=== PATIENT | female | born 1945 | race Caucasian/White ===

== ENCOUNTER → 2016-10-05 | Outpatient (CLI) | payer MEDICARE, OTHER ==
[2016-01-26 11:34] VITALS: BP 156/86
[~2016-10-05] MED LIST: ATOR40TA PO; CHOL10003 PO; COLC0.6T34 PO; CYAN10005 PO; DILT180C2 PO; ESCI5TAB8 PO; FURO-68 PO; ISOS60TA PO; LANS30CA PO; LOSA100T6 PO; METO50TA2 PO; OMEG1CAP6 PO; POTA20TA4 PO
--- NOTE | 2016-10-05 15:12 | CARD ---
APPROVED REPORT EXAM: Two-dimensional and M-mode echocardiogram with Doppler and color Doppler. Other Information Quality : Average Rhythm : NSR INDICATION Atrial Fibrillation 2D DIMENSIONS RVDd3.1 (2.9-3.5cm)Left Atrium(2D)3.5 (1.6-4.0cm) IVSd1.3 (0.7-1.1cm)Aortic Root(2D)3.4 (2.0-3.7cm) LVDd4.1 (3.9-5.9cm)LVOT Diameter2.3 (1.8-2.4cm) PWd1.3 (0.7-1.1cm)LVDs3.1 (2.5-4.0cm) FS (%) 25.5 %SV38.6 ml LVEF(%)50.6 (>50%) Aortic Valve AoV Peak Wing.171.6cm/sAoV VTI34.0cm AO Peak GR.11.8mmHgLVOT VTI 26.66cm AO Mean GR.6mmHgAVA (VTI)3.10cm2 AI P 1/2 Kdcr015mg Mitral Valve MV E Nzsshhux17.0cm/sMV E Peak Gr.9mmHg MV DECEL [id number] A Tgkuxqtm275.1cm/s MV E Mean Gr.3mmHgMV BUH97li E/A Ratio0.5MV A Ettofpsw106py MVA (PHT)4.58cm2 TDI Lateral E' P. V7.20cm/sMedial E' P. V8.29cm/s E/Lateral E'9.6E/Medial E'8.3 Tricuspid Valve TR P. Xkwfwlcq268uw/sRAP JRUCVYMI2acLy TR Peak Gr.35czBwEOGA62axAp LEFT VENTRICLE The left ventricle is normal size. There is borderline concentric left ventricular hypertrophy. Left ventricle systolic function is normal. The Ejection Fraction is 55%. There is normal LV segmental wal l motion. Tissue Doppler imaging reveals mild left ventricular diastolic dysfunction. Transmitral Dop pler flow pattern is Grade I-abnormal relaxation pattern. RIGHT VENTRICLE The right ventricle is normal size. The right ventricular systolic function is normal. ATRIA The left atrium size is normal. The right atrium size is normal. The interatrial septum is intact wit h no evidence for an atrial septal defect or patent foramen ovale as noted on 2-D or Doppler imaging. AORTIC VALVE The aortic valve is calcified but opens well. The aortic valve is trileaflet. Doppler and Color Flow revealed mild to moderate aortic regurgitation. There is no significant aortic valvular stenosis. MITRAL VALVE The mitral valve is normal in structure and function. There is no mitral valve stenosis. Doppler and Color Flow revealed no mitral valve regurgitation noted. TRICUSPID VALVE The tricuspid valve is not well visualized. Doppler and Color Flow revealed moderate tricuspid regurg itation. The PA pressure was estimated at 26 mmHg. There is no tricuspid valve stenosis. PULMONIC VALVE The pulmonic valve is not well visualized. Doppler and Color Flow revealed no pulmonic valvular regur gitation. There is no pulmonic valvular stenosis. GREAT VESSELS The aortic root is normal in size. The IVC is normal in size and collapses >50% with inspiration. PERICARDIAL EFFUSION There is no evidence of significant pericardial effusion. Critical Notification Critical Value: No <Conclusion> Left ventricle systolic function is normal. The Ejection Fraction is 55%. There is normal LV segmental wall motion. Transmitral Doppler flow pattern is Grade I-abnormal relaxation pattern. Mild to moderate aortic regurgitation. Moderate tricuspid regurgitation. The PA pressure was estimated at 26 mmHg. There is no evidence of significant pericardial effusion.
== END | disposition home or self-care (01) ==
LOC: ECHO 13:52
PROVIDERS: ATTEND Internal Medicine Cardiovascular Disease
DX: I48.0 Paroxysmal atrial fibrillation (principal); I51.7 Cardiomegaly; I35.1 Nonrheumatic aortic (valve) insufficiency
CPT/HCPCS: 93306

== ENCOUNTER 2017-05-18 01:43 | Emergency (ER) | payer MEDICARE, OTHER ==
[~2017-05-18] VITALS: Ht 162.6 cm; Wt 90.7 kg
[~2017-05-18 01:43] MED LIST changes: -ESCI5TAB8 PO; +LEXAPRO5 MG PO
--- NOTE | 2017-05-18 02:18 | PHYS DOC ---
Past Medical History Past Medical History: Arrhythmia, CHF, High Cholesterol, Hypertension Past Surgical History: Cholecystectomy, Other Additional Past Surgical Histo: cardiac cath Alcohol Use: None Drug Use: None Adult General Chief Complaint Chief Complaint: BACK PAIN OR INJURY [facility] HPI Review of Systems Review of Systems Constitutional: Denies fever or chills [] Eyes: Denies change in visual acuity, redness, or eye pain [] HENT: Denies nasal congestion or sore throat [] Respiratory: Denies cough or shortness of breath [] Cardiovascular: No additional information not addressed in HPI [] GI: Denies abdominal pain, nausea, vomiting, bloody stools or diarrhea [] : Denies dysuria or hematuria [] Musculoskeletal: Denies back pain or joint pain [] Integument: Denies rash or skin lesions [] Neurologic: Denies headache, focal weakness or sensory changes [] Endocrine: Denies polyuria or polydipsia [] Current Medications Current Medications Current Medications Medications (Trade) Dose Ordered Sig/Gage Start Time Stop Time Status Last Admin Dose Admin Cyclobenzaprine HCl (Flexeril) 10 mg 1X ONCE 05/18/17 02:30 05/18/17 02:31 DC 05/18/17 02:39 10 MG Ketorolac Tromethamine (Toradol) 30 mg 1X ONCE 05/18/17 02:30 05/18/17 02:31 DC 05/18/17 02:30 30 MG Prednisone (Prednisone) 50 mg 1X ONCE 05/18/17 02:30 05/18/17 02:31 DC 05/18/17 02:39 50 MG Allergies Allergies Allergies Coded Allergies Type Severity Reaction Last Updated Verified No Known Allergies Allergy Unknown 08/20/14 No Physical Exam Physical Exam Constitutional: Well developed, well nourished, no acute distress, non-toxic appearance. [] HENT: Normocephalic, atraumatic, bilateral external ears normal, oropharynx moist, no oral exudates, nose normal. [] Eyes: PERRLA, EOMI, conjunctiva normal, no discharge. [] Neck: Normal range of motion, no tenderness, supple, no stridor. [] Cardiovascular:Heart rate regular rhythm, no murmur [] Lungs & Thorax: Bilateral breath sounds clear to auscultation [] Abdomen: Bowel sounds normal, soft, no tenderness, no masses, no pulsatile masses. [] Skin: Warm, dry, no erythema, no rash. [] Back: No tenderness, no CVA tenderness. [] Extremities: No tenderness, no cyanosis, no clubbing, ROM intact, no edema. [] Neurologic: Alert and oriented X 3, normal motor function, normal sensory function, no focal deficits noted. [] Psychologic: Affect normal, judgement normal, mood normal. [] Current Patient Data Vital Signs Vital Signs Date Time Temp Pulse Resp B/P (MAP) Pulse Ox O2 Delivery O2 Flow Rate FiO2 05/18/17 01:55 97.6 62 18 96 Room Air 97.6 EKG EKG [] Radiology/Procedures Radiology/Procedures [] Course & Med Decision Making Course & Med Decision Making Pertinent Labs and Imaging studies reviewed. (See chart for details) [] Dragon Disclaimer Dragon Disclaimer This electronic medical record was generated, in whole or in part, using a voice recognition dictation system. Departure Departure Impression: Primary Impression: Sciatica Disposition: HOME, SELF-CARE Referrals: ALBA HART MD (PCP) Patient Instructions: Sciatica Additional Instructions: Your clinical findings suggest that you have sciatica. Sciatica refers to inflammation of the sciatic nerve which causes pain in the buttock or down the leg. It's an inflammatory process as a result of direct irritation of the nerve often from a disc herniation . Take ibuprofen 800 mg every 6 hours. Finish prednisone as prescribed once a day for 5 days. Follow-up with your doctor in 2 days for reevaluation and to discuss at what point you could consider outpatient MRI imaging for further workup if indicated. Return immediately for new severe worsening symptoms. Scripts Prednisone (PREDNISONE) 50 Mg Tablet 1 TAB PO DAILY, #5 TAB Prov: TIA KEE MD 05/18/17 Cyclobenzaprine Hcl (CYCLOBENZAPRINE HCL) 10 Mg Tablet 1 TAB PO TID for MUSCLE SPASMS, #30 TAB Prov: TIA KEE MD 05/18/17 TIA KEE MD May 18, 2017 02:18
[2017-05-18] MEDS ORDERED: predniSONE 20 MG TABLET PO ONE (02:30)
[2017-05-18] MEDS ORDERED: CYCLOBENZAPRINE 10 MG TABLET. PO ONE (02:30)
[2017-05-18] MEDS ORDERED: KETOROLAC TROMETHAMINE 30 MG/ML INJ. IV ONE (02:30)
[2017-05-18] MEDS ORDERED: CYCL10TA2 PO (03:30)
[2017-05-18] MEDS ORDERED: PRED50TA PO (03:30)
[2017-05-18 03:43] VITALS: BP 159/67
== END 2017-05-18 03:44 | disposition home or self-care (01) ==
LOC: ER 01:43
DX: M54.30 Sciatica, unspecified side (principal); I11.0 Hypertensive heart disease with heart failure; I50.9 Heart failure, unspecified; E78.00 Pure hypercholesterolemia, unspecified
CPT/HCPCS: 96374; 99284; J1885; J7512

== ENCOUNTER 2018-06-11 14:11 | Emergency (ER) | payer BC ==
[~2018-06-11] VITALS: Ht 165.1 cm; Wt 93.9 kg
[~2018-06-11 14:11] MED LIST changes: +CYCL10TA2 PO; +DONE10TA7 PO; +EDOX60TA PO; -LOSA100T6 PO; +LOSA100T7 PO; +METO-239 PO; -METO50TA2 PO; +METO50TA6 PO; +PANT40TA5 PO; +PRED50TA PO; +SERT100T PO
[2018-06-11 14:37] LABS: BILIRUBIN,URINE NEGATIVE (NEG); CLARITY,URINE CLOUDY; COLOR,URINE YELLOW; NITRITE,URINE NEGATIVE (NEG); PH,URINE 5.5; PROTEIN,URINE NEGATIVE (NEG-TRACE)
[2018-06-11] MEDS ORDERED: MECLIZINE HCL 12.5 MG TABLET. PO ONE (14:45)
[2018-06-11] MEDS ORDERED: IV NORMAL SALINE 1000ML BAG 1,000 ML IV ONE (14:45)
[2018-06-11 14:54] LABS: BACTERIA,URINE 0 /HPF (0-FEW); HYALINE CASTS, URINE MANY /HPF; RBC,URINE 0 /HPF (0-2); SQUAMOUS EPITHELIAL CELL,UR FEW /LPF
--- NOTE | 2018-06-11 15:21 | PHYS DOC ---
Past Medical History Past Medical History: A-Fib, Arrhythmia, CHF, High Cholesterol, Hypertension Past Surgical History: Cholecystectomy, Other Additional Past Surgical Histo: cardiac cath, neck surgery Alcohol Use: None Drug Use: None Adult General Chief Complaint Chief Complaint: DIZZY/LIGHT HEADED HPI HPI Patient is a 73 year old female with a history of A. fib, atrial arrhythmias, hypertension, CHF, high cholesterol, who presents today stating she has history of chronic nasal congestion, she patient states today she experience an episode of dizziness and has had a mild headache since this morning. Patient denies anything exacerbating or making her symptoms better. Patient is also complaining of a lump on the left lower quadrant that she states occurs intermittently for the last couple months. Patient states she believes it could be stool. She states she has history of constipation. Denies any nausea vomiting. Denies any chest pain or shortness of breath. She states the only reason she came to the ED today is because her family member requested her to come to the ED. Review of Systems Review of Systems Constitutional: Denies fever or chills [] Eyes: Denies change in visual acuity, redness, or eye pain [] HENT: Reports chronic nasal congestion, denies sore throat [] Respiratory: Denies cough or shortness of breath [] Cardiovascular: No additional information not addressed in HPI [] GI: Reports most of the left lower quadrant. Denies abdominal pain, nausea, vomiting, bloody stools or diarrhea [] : Denies dysuria or hematuria [] Musculoskeletal: Denies back pain or joint pain [] Integument: Denies rash or skin lesions [] Neurologic: Reports headache and dizziness, denies focal weakness or sensory changes [] All other systems were reviewed and found to be within normal limits, except as documented in this note. Current Medications Current Medications Current Medications Medications (Trade) Dose Ordered Sig/Gage Start Time Stop Time Status Last Admin Dose Admin Acetaminophen (Tylenol) 500 mg 1X ONCE 06/11/18 17:15 06/11/18 17:16 Ceftriaxone Sodium 50 ml @ 100 mls/hr 1X ONCE 06/11/18 15:45 06/11/18 16:14 DC 06/11/18 16:04 100 MLS/HR Meclizine HCl (Antivert) 25 mg 1X ONCE 06/11/18 14:45 9/24/18 14:46 DC 06/11/18 16:04 25 MG Sodium Chloride 1,000 ml @ 1,000 mls/hr 1X ONCE 06/11/18 14:45 06/11/18 15:44 DC 06/11/18 16:08 1,000 MLS/HR Allergies Allergies Allergies Coded Allergies Type Severity Reaction Last Updated Verified No Known Allergies Allergy Unknown 08/20/14 No Physical Exam Physical Exam Constitutional: Well developed, well nourished, no acute distress, non-toxic appearance. [] HENT: Normocephalic, atraumatic, bilateral external ears normal, oropharynx moist, no oral exudates, patient sounds congested nasally. Bilateral nasal turbinates are boggy and erythematous, mild frontal sinus tenderness. [] Eyes: PERRLA, EOMI, conjunctiva normal, no discharge. [] Neck: Normal range of motion, no tenderness, supple, no stridor. [] Cardiovascular:Bradycardia Lungs & Thorax: Bilateral breath sounds clear to auscultation [] Abdomen: Bowel sounds normal, soft, no tenderness, no masses, no pulsatile masses. [] Skin: Warm, dry, no erythema, no rash. [] Back: No tenderness, no CVA tenderness. [] Extremities: No tenderness, no cyanosis, no clubbing, ROM intact, no edema. [] Neurologic: Alert and oriented X 3, normal motor function, normal sensory function, no focal deficits noted. Cranial nerves II through XII intact Psychologic: Affect normal, judgement normal, mood normal. [] Current Patient Data Vital Signs Vital Signs Date Time Temp Pulse Resp B/P (MAP) Pulse Ox O2 Delivery O2 Flow Rate FiO2 06/11/18 14:44 98.2 57 16 153/68 (96) 97 Room Air 98.2 Lab Values Laboratory Tests Test 06/11/18 14:28 06/11/18 15:50 Urine Collection Type Unknown Urine Color Yellow Urine Clarity Cloudy Urine pH 5.5 Urine Specific [place] 1.015 Urine Protein Negative mg/dL (NEG-TRACE) Urine Glucose (UA) Negative mg/dL (NEG) Urine Ketones (Stick) Negative mg/dL (NEG) Urine Blood Negative (NEG) Urine Nitrite Negative (NEG) Urine Bilirubin Negative (NEG) Urine Urobilinogen Dipstick 1.0 mg/dL (0.2 mg/dL) Urine Leukocyte Esterase Small (NEG) Urine RBC 0 /HPF (0-2) Urine WBC 1-4 /HPF (0-4) Urine Squamous Epithelial Cells Few /LPF Urine Transitional Epithelial Cells Few /LPF Urine Bacteria 0 /HPF (0-FEW) Urine Hyaline Casts Many /HPF Urine Mucus Mod /LPF Urine Opiates Screen Neg (NEG) Urine Methadone Screen Neg (NEG) Urine Barbiturates Neg (NEG) Urine Phencyclidine Screen Neg (NEG) Urine Amphetamine/Methamphetamine Neg (NEG) Urine Benzodiazepines Screen Neg (NEG) Urine Cocaine Screen Neg (NEG) Urine Cannabinoids Screen Neg (NEG) Urine Ethyl Alcohol Neg (NEG) White Blood Count 8.4 x10^3/uL (4.0-11.0) Red Blood Count 4.44 x10^6/uL (3.50-5.40) Hemoglobin 12.2 g/dL (12.0-15.5) Hematocrit 35.2 % (36.0-47.0) L Mean Corpuscular Volume 79 fL (79-100) Mean Corpuscular Hemoglobin 28 pg (25-35) Mean Corpuscular Hemoglobin Concent 35 g/dL (31-37) Red Cell Distribution Width 15.5 % (11.5-14.5) H Platelet Count 217 x10^3/uL (140-400) Neutrophils (%) (Auto) 73 % (31-73) Lymphocytes (%) (Auto) 17 % (24-48) L Monocytes (%) (Auto) 7 % (0-9) Eosinophils (%) (Auto) 1 % (0-3) Basophils (%) (Auto) 1 % (0-3) Neutrophils # (Auto) 6.1 x10^3uL (1.8-7.7) Lymphocytes # (Auto) 1.5 x10^3/uL (1.0-4.8) Monocytes # (Auto) 0.6 x10^3/uL (0.0-1.1) Eosinophils # (Auto) 0.1 x10^3/uL (0.0-0.7) Basophils # (Auto) 0.1 x10^3/uL (0.0-0.2) Sodium Level 143 mmol/L (136-145) Potassium Level 3.7 mmol/L (3.5-5.1) Chloride Level 104 mmol/L (98-107) Carbon Dioxide Level 31 mmol/L (21-32) Anion Gap 8 (6-14) Blood Urea Nitrogen 12 mg/dL (7-20) Creatinine 1.2 mg/dL (0.6-1.0) H Estimated GFR (Cockcroft-Gault) 43.8 Glucose Level 116 mg/dL (70-99) H Calcium Level 9.7 mg/dL (8.5-10.1) Magnesium Level 1.8 mg/dL (1.8-2.4) Troponin I Quantitative < 0.017 ng/mL (0.000-0.055) PN-Pts-P-Type Natriuretic Peptide 208 pg/mL (0-449) Thyroid Stimulating Hormone (TSH) 1.269 uIU/mL (0.358-3.74) Laboratory Tests 06/11/18 15:50 Laboratory Tests 06/11/18 15:50 EKG EKG 14:[address] Gadiel parr bradycardia HR 47 with right bundle branch block no STEMI EKG similar to previous one done in September. Radiology/Procedures Radiology/Procedures []PROCEDURE: ACUTE ABDOMEN SERIES Supine and upright views of the abdomen and PA view chest x-ray Clinical indications: Constipation. Dizziness. Congestion. Shortness of breath. FINDINGS: Moderate fecal retention is seen throughout the colon and rectosigmoid region. No obstructive bowel pattern is evident. No air-fluid levels are seen. No free intraperitoneal air is evident. Cholecystectomy clips are seen within the right upper quadrant of the abdomen. Chest x-ray demonstrates no lung consolidation or pulmonary edema or pleural effusion or pneumothorax. There is mild linear scarring of the left lower lung zone. The heart size is mildly enlarged. The mediastinum and pulmonary vasculature and both antwon are unremarkable. IMPRESSION: No acute radiographic abnormality of the abdomen is evident. Moderate fecal retention. No lung consolidation is seen. Mild cardiomegaly. Stable chest x-ray since October 05, 2017. Electronically signed by: Sravan Borjas MD (06/11/2018 3:51 PM) [id number] DICTATED and SIGNED BY: SRAVAN BORJAS MD DATE: 06/11/18 1548 PROCEDURE: CT HEAD WO CONTRAST CT head without intravenous contrast History: Dizziness. Comparison: CT head January 26, 2016. Technique: Axial images are obtained of the head from the skull base through the vertex without IV contrast. Exposure: One or more of the following individualized dose reduction techniques were utilized for this examination: 1. Automated exposure control 2. Adjustment of the mA and/or kV according to patient size 3. Use of iterative reconstruction technique Findings: Variant anatomy is seen with cavum septi pellucidi et vergae present. The ventricles are appropriate in size, shape, and location for the patient's age. No obvious intracranial mass, mass-effect, midline shift, hemorrhage or obvious acute infarction is identified. Basilar cisterns are patent. Bone windows demonstrate no acute calvarial abnormality. The visualized paranasal sinuses appear clear. Impression: No acute intracranial process. Please note that CT can be relatively insensitive to acute ischemic infarction for up to 24 hours after symptom onset. Electronically signed by: Stevenson Yadav MD (06/11/2018 3:41 PM) [id number] DICTATED and SIGNED BY: STEVENSON YADAV MD DATE: 06/11/18 1536 Course & Med Decision Making Course & Med Decision Making Pertinent Labs and Imaging studies reviewed. (See chart for details) This is a 73-year-old female patient presented to the ED today with complaints of chronic nasal congestion, and dizziness and a headache since this morning. Patient's also complaining of a lump on her left lower quadrant that she states occurs when she is constipated. She believes it's probably stools. FAST exam is negative. CT of the head is negative for any acute findings. Acute abdominal series was noted for constipation otherwise no acute findings. CBC no acute findings, BMP with no acute findings and troponin is normal. Urine noted for UTI. Patient was given Rocephin in the ED. Discharged with Augmentin. Patient was instructed to perform an enema when she gets home. Instructed to increase dietary fiber intake. She is up ambulating in the ED with no difficulties. Her dizziness is likely from chronic sinusitis. She has a PCP and needs to follow up this week or next week. Patient was instructed to follow- up as soon as possible. Provided return precautions and discharged in stable condition. Dragon Disclaimer Dragon Disclaimer This electronic medical record was generated, in whole or in part, using a voice recognition dictation system. Departure Departure Impression: Primary Impression: Constipation Additional Impressions: Dizziness Acute sinusitis Urinary tract infection Disposition: HOME, SELF-CARE Condition: STABLE Referrals: ROZ FOX (PCP) Follow-up as soon as you can Patient Instructions: Constipation, Adult, Dizziness, [id number], Urinary Tract Infection Additional Instructions: You were evaluated in the emergency room and noted to have chronic sinusitis, constipation, as well as urinary tract infection. We highly suspect your dizziness is coming from the sinus infection. Take the prescribed antibiotics as ordered until completed. Follow-up with your primary care doctor as soon as you can. Come back to the ED at any point symptoms worsen. Take Tylenol or Motrin as needed for pain or fever. 4 year constipation, we recommend you perform an enema as soon as you get home. You have a lot of feces in your colon. Also take magnesium citrate as needed for constipation. Also take MiraLAX every day. Scripts Na Phos,M-B/Na Phos,Di-Ba (ENEMA) 133 Ml Enema 133 ML RC ONCE, #1 EACH Prov: OLI FELIPE APRN 06/11/18 Amoxicillin/Potassium Clav (AUGMENTIN 875-125 TABLET) 1 Each Tablet 1 TAB PO BID, #20 TAB Prov: OLI FELIPE APRN 06/11/18 Magnesium Citrate (MAGNESIUM CITRATE) 296 Ml Solution 296 ML PO ONCE, #296 ML Prov: OLI FELIPE APRN 06/11/18 Polyethylene Glycol 3350 (MIRALAX) 17 Gm Powd.pack 1 PACKET PO DAILY, #30 PACKET 3 Refills Prov: OLI FELIPE APRN 06/11/18 Problem Qualifiers Primary Impression: Constipation Constipation type: unspecified constipation type Qualified Codes: K59.00 - Constipation, unspecified Additional Impressions: Acute sinusitis Sinusitis location: maxillary Recurrence: not specified as recurrent Qualified Codes: J01.00 - Acute maxillary sinusitis, unspecified Urinary tract infection Urinary tract infection type: site unspecified Hematuria presence: without hematuria Qualified Codes: N39.0 - Urinary tract infection, site not specified OLI FELIPE APRN Jun 11, 2018 15:21
--- NOTE | 2018-06-11 15:41 | EKG ---
[facility] [address] [place] [address] Test Date: 2018-06-11 Test Time: 14:55:10 Pat Name: JANET EWING Department: Room: Gender: F Investigator Internal Affairs: : 1945 Requested By: OLI FELIPE Order Number: [id number] Reading MD: Ha Hameed Measurements Intervals [place] Rate: 47 P: 39 MO: 192 QRS: 22 QRSD: 158 T: -14 QT: 412 QTc: 367 Interpretive Statements SINUS BRADYCARDIA RIGHT BUNDLE BRANCH BLOCK ABNORMAL ECG Electronically Signed On 06-12-2018 11:14:19 CDT by Ha Hameed
--- NOTE | 2018-06-11 15:45 | RAD ---
CT head without intravenous contrast History: Dizziness. Comparison: CT head January 26, 2016. Technique: Axial images are obtained of the head from the skull base through the vertex without IV contrast. Exposure: One or more of the following individualized dose reduction techniques were utilized for this examination: 1. Automated exposure control 2. Adjustment of the mA and/or kV according to patient size 3. Use of iterative reconstruction technique Findings: Variant anatomy is seen with cavum septi pellucidi et vergae present. The ventricles are appropriate in size, shape, and location for the patient's age. No obvious intracranial mass, mass-effect, midline shift, hemorrhage or obvious acute infarction is identified. Basilar cisterns are patent. Bone windows demonstrate no acute calvarial abnormality. The visualized paranasal sinuses appear clear. Impression: No acute intracranial process. Please note that CT can be relatively insensitive to acute ischemic infarction for up to 24 hours after symptom onset. Electronically signed by: Stevenson Rubio MD (06/11/2018 3:41 PM) [facility]
--- NOTE | 2018-06-11 15:54 | RAD ---
Supine and upright views of the abdomen and PA view chest x-ray Clinical indications: Constipation. Dizziness. Congestion. Shortness of breath. FINDINGS: Moderate fecal retention is seen throughout the colon and rectosigmoid region. No obstructive bowel pattern is evident. No air-fluid levels are seen. No free intraperitoneal air is evident. Cholecystectomy clips are seen within the right upper quadrant of the abdomen. Chest x-ray demonstrates no lung consolidation or pulmonary edema or pleural effusion or pneumothorax. There is mild linear scarring of the left lower lung zone. The heart size is mildly enlarged. The mediastinum and pulmonary vasculature and both antwon are unremarkable. IMPRESSION: No acute radiographic abnormality of the abdomen is evident. Moderate fecal retention. No lung consolidation is seen. Mild cardiomegaly. Stable chest x-ray since October 05, 2017. Electronically signed by: Tony Borjas MD (06/11/2018 3:51 PM) [id number]
[2018-06-11 15:58] LABS: BASO # 0.1 x10^3/uL (0.0-0.2); BASO % 1 % (0-3); EOS # 0.1 x10^3/uL (0.0-0.7); EOS % 1 % (0-3); HEMATOCRIT 35.2 % (36.0-47.0); HEMOGLOBIN 12.2 g/dL (12.0-15.5); LYMPH # 1.5 x10^3/uL (1.0-4.8); LYMPH % 17 % (24-48); MEAN CORPUSCULAR HEMOGLOBIN 28 pg (25-35); MEAN CORPUSCULAR HGB CONC 35 g/dL (31-37); MEAN CORPUSCULAR VOLUME 79 fL (79-100); MONO # 0.6 x10^3/uL (0.0-1.1); MONO % 7 % (0-9); NEUT # 6.1 x10^3uL (1.8-7.7); NEUT % 73 % (31-73); PLATELET COUNT 217 x10^3/uL (140-400); RED BLOOD COUNT 4.44 x10^6/uL (3.50-5.40); RED CELL DISTRIBUTION WIDTH 15.5 % (11.5-14.5); WHITE BLOOD COUNT 8.4 x10^3/uL (4.0-11.0)
[2018-06-11 16:10] LABS: CALCIUM 9.7 mg/dL (8.5-10.1); CREATININE 1.2 mg/dL (0.6-1.0); GFR 43.8; MAGNESIUM 1.8 mg/dL (1.8-2.4); POTASSIUM 3.7 mmol/L (3.5-5.1)
[2018-06-11 16:14] LABS: BARBITURATES NEG (NEG); BENZODIAZEPINES NEG (NEG); CANNABINOIDS NEG (NEG); COCAINE NEG (NEG); METHADONE NEG (NEG); OPIATES NEG (NEG); PHENCYCLIDINE NEG (NEG)
[2018-06-11 16:17] LABS: AMPHETAMINE/METHAMPHETAMINE NEG (NEG)
[2018-06-11] MEDS ORDERED: ACETAMINOPHEN 500 MG TABLET PO ONE (17:15)
[2018-06-11] MEDS ORDERED: NA P133E6 RC (17:20)
[2018-06-11] MEDS ORDERED: MAGN296S9 PO (17:20)
[2018-06-11] MEDS ORDERED: POLY17PO29 PO (17:20)
[2018-06-11] MEDS ORDERED: AMOX1TAB61 PO (17:20)
[2018-06-11 18:30] VITALS: BP 184/73
== END 2018-06-11 18:35 | disposition home or self-care (01) ==
LOC: ER 14:11
DX: K59.00 Constipation, unspecified (principal); R42 Dizziness and giddiness; N39.0 Urinary tract infection, site not specified; J01.90 Acute sinusitis, unspecified; I48.91 Unspecified atrial fibrillation; I11.0 Hypertensive heart disease with heart failure; I50.9 Heart failure, unspecified; E78.00 Pure hypercholesterolemia, unspecified; Z90.49 Acquired absence of other specified parts of digestive tract
CPT/HCPCS: 36415; 70450; 74022; 80048; 80307; 81001; 83735; 83880; 84443; 84484; 85025; 87086; 93005; 96365; 96366; 99285; J0690; J7030; J8597; G0479

== ENCOUNTER 2018-06-14 14:14 | Emergency (ER) | payer BC ==
[~2018-06-14] VITALS: Ht 165.1 cm; Wt 93.9 kg
[~2018-06-14 14:14] MED LIST changes: +AMOX1TAB61 PO; +MAGN296S9 PO; +NA P133E6 RC; +POLY17PO29 PO
--- NOTE | 2018-06-14 15:18 | RAD ---
Examination: Acute abdomen series HISTORY: History of loose stools for 4 days COMPARISON: 06/11/2018 FINDINGS: The cardiomediastinal silhouette grossly appears unremarkable. Minimal left lung base atelectasis. No evidence of free air identified in the hemidiaphragms. Unremarkable bowel gas pattern. Small calcific density projecting in the mid abdomen measuring 3 mm could be a calcification within the bowel. IMPRESSION: 1. No acute cardiopulmonary findings. 2. Unremarkable gas pattern. Electronically signed by: Kendall Morgan MD (06/14/2018 3:15 PM) [id number]
[2018-06-14] MEDS ORDERED: CONTRAST GIVEN. MC PRN (15:45)
[2018-06-14] MEDS ORDERED: IOHEXOL 300 MG/ML 100ML VIAL. IV ONE (15:45)
--- NOTE | 2018-06-14 15:45 | PHYS DOC ---
Past Medical History Past Medical History: A-Fib, Arrhythmia, CHF, High Cholesterol, Hypertension Past Surgical History: Cholecystectomy, Other Additional Past Surgical Histo: cardiac cath, neck surgery Alcohol Use: None Drug Use: None Adult General Chief Complaint Chief Complaint: CONTISPATION [facility] HPI Patient is a 73 year old female with history of A. fib, CHF, high cholesterol, hypertension, who presents today complaining of constipation. Patient is a very poor historian. She does not remember the last time she had a normal bowel movement. She states she tried this clear drink that tasted nasty yesterday but she can not recall if she used the bathroom or not. She also states she has done an enema and does not know the results. She states her sisters asked her to come to the Ed to be evaluated. Patient denies any abdominal pain, denies any nausea vomiting. Review of Systems Review of Systems Constitutional: Denies fever or chills [] Eyes: Denies change in visual acuity, redness, or eye pain [] HENT: Denies nasal congestion or sore throat [] Respiratory: Denies cough or shortness of breath [] Cardiovascular: No additional information not addressed in HPI [] GI: Reports constipation. Denies abdominal pain, nausea, vomiting, bloody stools or diarrhea [] : Denies dysuria or hematuria [] Musculoskeletal: Denies back pain or joint pain [] Integument: Denies rash or skin lesions [] Neurologic: Denies headache, focal weakness or sensory changes [] All other systems were reviewed and found to be within normal limits, except as documented in this note. Current Medications Current Medications Current Medications Medications (Trade) Dose Ordered Sig/Gage Start Time Stop Time Status Last Admin Dose Admin Info (CONTRAST GIVEN -- Rx MONITORING) 1 each PRN DAILY PRN 06/14/18 15:45 06/16/18 15:44 Iohexol (Omnipaque 300 Mg/ml) 75 ml 1X ONCE 06/14/18 15:45 06/14/18 15:46 DC 06/14/18 15:45 60 ML Allergies Allergies Allergies Coded Allergies Type Severity Reaction Last Updated Verified No Known Allergies Allergy Unknown 08/20/14 No Physical Exam Physical Exam Constitutional: Well developed, well nourished, no acute distress, non-toxic appearance. [] HENT: Normocephalic, atraumatic, bilateral external ears normal, oropharynx moist, no oral exudates, nose normal. [] Eyes: PERRLA, EOMI, conjunctiva normal, no discharge. [] Neck: Normal range of motion, no tenderness, supple, no stridor. [] Cardiovascular:Heart rate regular rhythm, no murmur [] Lungs & Thorax: Bilateral breath sounds clear to auscultation [] Abdomen: Bowel sounds normal, soft, no tenderness, no masses, no pulsatile masses. [] Skin: Warm, dry, no erythema, no rash. [] Back: No tenderness, no CVA tenderness. [] Extremities: No tenderness, no cyanosis, no clubbing, ROM intact, no edema. [] Neurologic: Alert and oriented X 3, normal motor function, normal sensory function, no focal deficits noted. [] Psychologic: Affect normal, judgement normal, mood normal. [] Current Patient Data Vital Signs Vital Signs Date Time Temp Pulse Resp B/P (MAP) Pulse Ox O2 Delivery O2 Flow Rate FiO2 06/14/18 18:35 58 20 160/72 (101) 98 06/14/18 14:37 98.5 Room Air 98.5 Lab Values Laboratory Tests Test 06/14/18 15:30 White Blood Count 7.3 x10^3/uL (4.0-11.0) Red Blood Count 4.29 x10^6/uL (3.50-5.40) Hemoglobin 11.6 g/dL (12.0-15.5) L Hematocrit 34.6 % (36.0-47.0) L Mean Corpuscular Volume 81 fL (79-100) Mean Corpuscular Hemoglobin 27 pg (25-35) Mean Corpuscular Hemoglobin Concent 34 g/dL (31-37) Red Cell Distribution Width 15.1 % (11.5-14.5) H Platelet Count 205 x10^3/uL (140-400) Neutrophils (%) (Auto) 64 % (31-73) Lymphocytes (%) (Auto) 23 % (24-48) L Monocytes (%) (Auto) 9 % (0-9) Eosinophils (%) (Auto) 3 % (0-3) Basophils (%) (Auto) 1 % (0-3) Neutrophils # (Auto) 4.7 x10^3uL (1.8-7.7) Lymphocytes # (Auto) 1.7 x10^3/uL (1.0-4.8) Monocytes # (Auto) 0.6 x10^3/uL (0.0-1.1) Eosinophils # (Auto) 0.2 x10^3/uL (0.0-0.7) Basophils # (Auto) 0.1 x10^3/uL (0.0-0.2) Sodium Level 144 mmol/L (136-145) Potassium Level 3.4 mmol/L (3.5-5.1) L Chloride Level 103 mmol/L (98-107) Carbon Dioxide Level 34 mmol/L (21-32) H Anion Gap 7 (6-14) Blood Urea Nitrogen 11 mg/dL (7-20) Creatinine 1.0 mg/dL (0.6-1.0) Estimated GFR (Cockcroft-Gault) 54.1 BUN/Creatinine Ratio 11 (6-20) Glucose Level 108 mg/dL (70-99) H Calcium Level 10.0 mg/dL (8.5-10.1) Total Bilirubin 0.6 mg/dL (0.2-1.0) Aspartate Amino Transferase (AST) 16 U/L (15-37) Alanine Aminotransferase (ALT) 18 U/L (14-59) Alkaline Phosphatase 61 U/L (46-116) Total Protein 6.9 g/dL (6.4-8.2) Albumin 3.6 g/dL (3.4-5.0) Albumin/Globulin Ratio 1.1 (1.0-1.7) Lipase 160 U/L (73-393) Laboratory Tests 06/14/18 15:30 Laboratory Tests 06/14/18 15:30 EKG EKG [] Radiology/Procedures Radiology/Procedures []PROCEDURE: CT ABD PELV W/ IV CONTRST ONLY Examination: CT ABD PELV W/ IV CONTRST ONLY History: CONSTIPATION INJ 75ML OMNI 300 PREV SENT Comparison/Correlation: 10/30/2005 CT abdomen and pelvis with contrast Findings: Axial images of the abdomen and pelvis were obtained following 75 cc Omnipaque 300 IV. Sagittal and coronal reformatted images were provided. Minimal linear atelectasis at the lung bases noted. Liver, spleen, pancreas, adrenal glands, and kidneys are normal. Mild fullness of the common bile duct is evident. No extraluminal gas. No obstruction. Fluid is present within the colon. No surrounding inflammatory change. Appendix is normal. No enlarged abdominal or pelvic lymph nodes. Urinary bladder is unremarkable. Uterus is grossly unremarkable for age. Vacuum phenomenon at L3-4 is present. Impression: Fluid is noted within the colon and rectum. No significant solid stool identified. No obstruction. Electronically signed by: Scott Cruz MD (06/14/2018 5:21 PM) [facility] DICTATED and SIGNED BY: SCOTT CRUZ MD DATE: 06/14/18 1716 Course & Med Decision Making Course & Med Decision Making Pertinent Labs and Imaging studies reviewed. (See chart for details) This is a 73-year-old female patient presenting to the ED today complaining of constipation. She does not remember when she last had a bowel movement but has tried what sounds like magnesium citrate. CT of the abdomen and pelvic was noted for fluid in the colon and rectum that no significant stool. Patient was discharged with instructions to follow-up with the GI specialist provided as well as the PCP. Encouraged her to continue doing MiraLAX every day. Provided return precautions and discharged in stable condition. Dragon Disclaimer Dragon Disclaimer This electronic medical record was generated, in whole or in part, using a voice recognition dictation system. Departure Departure Impression: Primary Impression: Constipation Disposition: 01 HOME, SELF-CARE Condition: STABLE Referrals: ROZ FOX (PCP) TAMARA TORRES MD follow up in one week Patient Instructions: Constipation, Adult Additional Instructions: You were evaluated in the emergency room for constipation. You do not have any significant constipation on your CT of the abdomen and pelvic. We recommend you continue using MiraLAX every day. Problem Qualifiers Primary Impression: Constipation Constipation type: unspecified constipation type Qualified Codes: K59.00 - Constipation, unspecified OLI FELIPE AMBULATORY SERVICE REPRESENTATIVE Jun 14, 2018 15:45
[2018-06-14 15:55] LABS: BASO # 0.1 x10^3/uL (0.0-0.2); BASO % 1 % (0-3); EOS # 0.2 x10^3/uL (0.0-0.7); EOS % 3 % (0-3); HEMATOCRIT 34.6 % (36.0-47.0); HEMOGLOBIN 11.6 g/dL (12.0-15.5); LYMPH # 1.7 x10^3/uL (1.0-4.8); LYMPH % 23 % (24-48); MEAN CORPUSCULAR HEMOGLOBIN 27 pg (25-35); MEAN CORPUSCULAR HGB CONC 34 g/dL (31-37); MEAN CORPUSCULAR VOLUME 81 fL (79-100); MONO # 0.6 x10^3/uL (0.0-1.1); MONO % 9 % (0-9); NEUT # 4.7 x10^3uL (1.8-7.7); NEUT % 64 % (31-73); PLATELET COUNT 205 x10^3/uL (140-400); RED BLOOD COUNT 4.29 x10^6/uL (3.50-5.40); RED CELL DISTRIBUTION WIDTH 15.1 % (11.5-14.5); WHITE BLOOD COUNT 7.3 x10^3/uL (4.0-11.0)
[2018-06-14 16:10] LABS: GFR 54.1; POTASSIUM 3.4 mmol/L (3.5-5.1)
[2018-06-14 16:17] LABS: ALBUMIN 3.6 g/dL (3.4-5.0); ALBUMIN/GLOBULIN RATIO 1.1 (1.0-1.7); TOTAL BILIRUBIN 0.6 mg/dL (0.2-1.0); TOTAL PROTEIN 6.9 g/dL (6.4-8.2)
--- NOTE | 2018-06-14 17:25 | RAD ---
Examination: CT ABD PELV W/ IV CONTRST ONLY History: CONSTIPATION INJ 75ML OMNI 300 PREV SENT Comparison/Correlation: 10/30/2005 CT abdomen and pelvis with contrast Findings: Axial images of the abdomen and pelvis were obtained following 75 cc Omnipaque 300 IV. Sagittal and coronal reformatted images were provided. Minimal linear atelectasis at the lung bases noted. Liver, spleen, pancreas, adrenal glands, and kidneys are normal. Mild fullness of the common bile duct is evident. No extraluminal gas. No obstruction. Fluid is present within the colon. No surrounding inflammatory change. Appendix is normal. No enlarged abdominal or pelvic lymph nodes. Urinary bladder is unremarkable. Uterus is grossly unremarkable for age. Vacuum phenomenon at L3-4 is present. Impression: Fluid is noted within the colon and rectum. No significant solid stool identified. No obstruction. Electronically signed by: Scott hCild MD (06/14/2018 5:21 PM) [facility]
[2018-06-14 18:35] VITALS: BP 160/72
== END 2018-06-14 18:51 | disposition home or self-care (01) ==
LOC: ER 14:14
DX: K59.00 Constipation, unspecified (principal); E78.00 Pure hypercholesterolemia, unspecified; I48.91 Unspecified atrial fibrillation; I11.0 Hypertensive heart disease with heart failure; I50.9 Heart failure, unspecified; Z90.49 Acquired absence of other specified parts of digestive tract
CPT/HCPCS: 36415; 74022; 74177; 80053; 83690; 85025; 99285; Q9967

== ENCOUNTER 2018-11-19 12:32 | Inpatient (IN) | payer BC ==
[~2018-11-19] VITALS: Ht 160 cm; Wt 96.3 kg
[~2018-11-19 12:32] MED LIST changes: +LOSA100T14 PO; -LOSA100T7 PO
[2018-11-19 13:25] LABS: BILIRUBIN,URINE NEGATIVE (NEG); CLARITY,URINE CLEAR; COLOR,URINE YELLOW; NITRITE,URINE NEGATIVE (NEG); PROTEIN,URINE NEGATIVE (NEG-TRACE)
[2018-11-19 13:31] LABS: HYALINE CASTS, URINE FEW /HPF; SQUAMOUS EPITHELIAL CELL,UR OCC /LPF
[2018-11-19 13:32] LABS: BACTERIA,URINE FEW /HPF (0-FEW); WBC,URINE OCC /HPF (0-4)
[2018-11-19] MEDS ORDERED: IV NORMAL SALINE 1000ML BAG 1,000 ML IV ONE (13:45)
[2018-11-19] MEDS ORDERED: fentaNYL PF VIAL 100 MCG/2 ML VIAL IV ONE (13:45)
[2018-11-19 14:35] LABS: BASO # 0.1 x10^3/uL (0.0-0.2); BASO % 1 % (0-3); EOS % 0 % (0-3); HEMATOCRIT 37.6 % (36.0-47.0); HEMOGLOBIN 12.5 g/dL (12.0-15.5); LYMPH # 1.3 x10^3/uL (1.0-4.8); LYMPH % 15 % (24-48); MEAN CORPUSCULAR HEMOGLOBIN 27 pg (25-35); MEAN CORPUSCULAR HGB CONC 33 g/dL (31-37); MEAN CORPUSCULAR VOLUME 82 fL (79-100); MONO # 0.6 x10^3/uL (0.0-1.1); MONO % 7 % (0-9); NEUT % 78 % (31-73); PLATELET COUNT 260 x10^3/uL (140-400); RED BLOOD COUNT 4.56 x10^6/uL (3.50-5.40); RED CELL DISTRIBUTION WIDTH 14.8 % (11.5-14.5)
[2018-11-19 14:44] LABS: CALCIUM 9.5 mg/dL (8.5-10.1); CREATININE 1.1 mg/dL (0.6-1.0); GFR 48.4; POTASSIUM 3.4 mmol/L (3.5-5.1)
[2018-11-19 14:59] LABS: ALBUMIN 4.2 g/dL (3.4-5.0); ALBUMIN/GLOBULIN RATIO 1.1 (1.0-1.7); MAGNESIUM 2.3 mg/dL (1.8-2.4); TOTAL BILIRUBIN 1.3 mg/dL (0.2-1.0); TOTAL PROTEIN 8.1 g/dL (6.4-8.2)
[2018-11-19] MEDS ORDERED: IOHEXOL 300 MG/ML 100ML VIAL. IV ONE (15:00)
[2018-11-19] MEDS ORDERED: CONTRAST GIVEN. MC PRN (15:15)
--- NOTE | 2018-11-19 15:55 | RAD ---
EXAM: CT Abdomen and Pelvis with IV contrast CLINICAL HISTORY: Left lower quadrant pain COMPARISON: 06/14/2018 TECHNIQUE: Helical CT of the abdomen and pelvis was performed following the administration of intravenous contrast. Axial, coronal and sagittal reformatted images were generated. PQRS compliance statement - One or more of the following individualized dose reduction techniques were utilized for this study: 1. Automated exposure control 2. Adjustment of the mA and/or kV according to patient size 3. Use of iterative reconstruction technique FINDINGS: Lower chest: Linear opacities in the lower lobes and lingula likely scarring/atelectasis. Coronary artery calcifications are seen. No pericardial effusion. Abdomen and Pelvis: Focal hypoattenuation along the falciform ligament likely focal fatty infiltration. Accounting for postcholecystectomy state, no biliary ductal dilatation. Spleen is mildly enlarged measuring 14.3 cm in length. Adrenal glands and pancreas are unremarkable. Symmetric nephrograms. No focal renal lesion. No hydronephrosis. Bladder is unremarkable. Appendix is normal. No small or large bowel dilatation. Moderate colonic stool content. Small fat-containing periumbilical hernia. No abdominal or pelvic ascites. No abdominal or pelvic lymphadenopathy. Calcifications of aorta are seen. Aorta is grossly normal in caliber throughout the visualized segment. Bones: Degenerative changes of the spine are seen. IMPRESSION: 1. Spleen is enlarged measuring 14.3 cm in length.. 2. Moderate colonic stool content is seen. However the rectosigmoid is decompressed. 3. Focal hypoattenuation along the falx from ligament likely focal fatty infiltration. 4. No evidence of bowel obstruction. Appendix is normal. 5. No evidence for acute diverticulitis. Electronically signed by: Luis Felipe Montiel MD (11/19/2018 3:52 PM) [facility]
--- NOTE | 2018-11-19 16:08 | EKG ---
[facility] [address] [place] [address] Test Date: 2018-11-19 Test Time: 14:49:01 Pat Name: JANET EWING Department: Room: Gender: F Pre Algebra Teacher: : 1945 Requested By: LIAT LEÓN Order Number: [id number] Reading MD: Otto Moran MD Measurements Intervals [place] Rate: 59 P: 43 WV: 184 QRS: 39 QRSD: 162 T: -13 QT: 434 QTc: 434 Interpretive Statements SINUS RHYTHM RIGHT BUNDLE BRANCH BLOCK Electronically Signed On 11-20-2018 7:05:34 DIRECTOR NEWS by Otto Moran MD
--- NOTE | 2018-11-19 16:15 | PHYS DOC ---
Past Medical History Past Medical History: A-Fib, Arrhythmia, CHF, High Cholesterol, Hypertension Past Surgical History: Cholecystectomy, Other Additional Past Surgical Histo: cardiac cath, neck surgery Alcohol Use: None Drug Use: None Adult General Chief Complaint Chief Complaint: ABDOMINAL PAIN HPI HPI 73 y/o female presents to ER for c/o LLQ pain which started around 11 a.m. today. She reports she has had decreased appetite with slight nausea denies any V/D episodes. She reports generalized fatigue/weakness. She denies fever, urinary sxs, CP, or SOA. She reports she hasn't had BM in a few days but hasn't eaten much either. She reports hx of chronic constipation and takes Miralax. She denies any recent falls/injury. Pt is uncertain of her past medical hx or daily medications. Pt's dgtr Kathie at bedside reports pt with hx of Dementia and voices concerns as pt lives alone and isn't taking medications daily as Rx'd. She reports she has concerns on pt not being able to care for herself. Review of Systems Review of Systems Constitutional: Denies fever or chills. Reports generalized fatigue/weakness Eyes: Denies change in visual acuity, redness, or eye pain [] HENT: Denies nasal congestion or sore throat [] Respiratory: Denies cough or shortness of breath [] Cardiovascular: Denies CP GI: Denies vomiting, bloody stools or diarrhea. Reports LLQ pain with intermittent nausea. Reports decreased appetite. Reports hx of constipation- last BM a few days ago : Denies dysuria or hematuria [] Musculoskeletal: Denies back pain or joint pain [] Integument: Denies rash or skin lesions [] Neurologic: Denies headache, focal weakness or sensory changes [] Endocrine: Denies polyuria or polydipsia [] All other systems were reviewed and found to be within normal limits, except as documented in this note. Current Medications Current Medications Current Medications Medications (Trade) Dose Ordered Sig/Gage Start Time Stop Time Status Last Admin Dose Admin Fentanyl Citrate (Fentanyl 2ml Vial) 25 mcg 1X ONCE 11/19/18 13:45 11/19/18 13:48 DC 11/19/18 13:45 25 MCG Info (CONTRAST GIVEN -- Rx MONITORING) 1 each PRN DAILY PRN 11/19/18 15:15 11/21/18 15:14 Iohexol (Omnipaque 300 Mg/ml) 60 ml 1X ONCE 11/19/18 15:00 11/19/18 15:01 DC 11/19/18 15:00 60 ML Sodium Chloride 1,000 ml @ 1,000 mls/hr 1X ONCE 11/19/18 13:45 11/19/18 14:44 DC 11/19/18 13:45 1,000 MLS/HR Allergies Allergies Allergies Coded Allergies Type Severity Reaction Last Updated Verified No Known Allergies Allergy Unknown 08/20/14 No Physical Exam Physical Exam Constitutional: Well developed, well nourished, no acute distress, non-toxic appearance. Fatigued appearance HENT: Normocephalic, atraumatic, bilateral ears normal, mucous membranes pink/ dry, no oral exudates, nose normal. [] Eyes: PERRLA, no nystagmus, conjunctiva normal, no discharge. [] Neck: Normal range of motion, no tenderness, supple, no stridor. [] Cardiovascular: Heart rate regular rhythm, no murmur [] Lungs & Thorax: Bilateral breath sounds clear to auscultation. Resp. equal/ nonlabored Abdomen: Bowel sounds normal, soft/obese, tender on palp. LLQ no distention/ rigidity, no rebound tenderness, no masses, no pulsatile masses. [] Skin: Warm, dry, no erythema, no rash. [] Back: No tenderness, no CVA tenderness. [] Extremities: No tenderness, no cyanosis, no clubbing, ROM intact, no edema. [] Neurologic: Alert and oriented X 3, normal motor function, normal sensory function, no focal deficits noted. [] Psychologic: Affect normal, judgement normal, mood normal. [] Current Patient Data Vital Signs Vital Signs Date Time Temp Pulse Resp B/P (MAP) Pulse Ox O2 Delivery O2 Flow Rate FiO2 11/19/18 15:00 62 20 159/70 (99) 98 Room Air 11/19/18 13:02 97.9 97.9 Lab Values Laboratory Tests Test 11/19/18 13:18 11/19/18 14:26 Urine Collection Type Unknown Urine Color Yellow Urine Clarity Clear Urine pH 7.0 Urine Specific [place] 1.015 Urine Protein Negative mg/dL (NEG-TRACE) Urine Glucose (UA) Negative mg/dL (NEG) Urine Ketones (Stick) Negative mg/dL (NEG) Urine Blood Negative (NEG) Urine Nitrite Negative (NEG) Urine Bilirubin Negative (NEG) Urine Urobilinogen Dipstick 1.0 mg/dL (0.2 mg/dL) Urine Leukocyte Esterase Negative (NEG) Urine RBC 1-2 /HPF (0-2) Urine WBC Occ /HPF (0-4) Urine Squamous Epithelial Cells Occ /LPF Urine Bacteria Few /HPF (0-FEW) Urine Hyaline Casts Few /HPF Urine Mucus Mod /LPF White Blood Count 9.0 x10^3/uL (4.0-11.0) Red Blood Count 4.56 x10^6/uL (3.50-5.40) Hemoglobin 12.5 g/dL (12.0-15.5) Hematocrit 37.6 % (36.0-47.0) Mean Corpuscular Volume 82 fL (79-100) Mean Corpuscular Hemoglobin 27 pg (25-35) Mean Corpuscular Hemoglobin Concent 33 g/dL (31-37) Red Cell Distribution Width 14.8 % (11.5-14.5) H Platelet Count 260 x10^3/uL (140-400) Neutrophils (%) (Auto) 78 % (31-73) H Lymphocytes (%) (Auto) 15 % (24-48) L Monocytes (%) (Auto) 7 % (0-9) Eosinophils (%) (Auto) 0 % (0-3) Basophils (%) (Auto) 1 % (0-3) Neutrophils # (Auto) 7.0 x10^3uL (1.8-7.7) Lymphocytes # (Auto) 1.3 x10^3/uL (1.0-4.8) Monocytes # (Auto) 0.6 x10^3/uL (0.0-1.1) Eosinophils # (Auto) 0.0 x10^3/uL (0.0-0.7) Basophils # (Auto) 0.1 x10^3/uL (0.0-0.2) Sodium Level 142 mmol/L (136-145) Potassium Level 3.4 mmol/L (3.5-5.1) L Chloride Level 100 mmol/L (98-107) Carbon Dioxide Level 31 mmol/L (21-32) Anion Gap 11 (6-14) Blood Urea Nitrogen 14 mg/dL (7-20) Creatinine 1.1 mg/dL (0.6-1.0) H Estimated GFR (Cockcroft-Gault) 48.4 BUN/Creatinine Ratio 13 (6-20) Glucose Level 116 mg/dL (70-99) H Lactic Acid Level 1.2 mmol/L (0.4-2.0) Calcium Level 9.5 mg/dL (8.5-10.1) Magnesium Level 2.3 mg/dL (1.8-2.4) Total Bilirubin 1.3 mg/dL (0.2-1.0) H Aspartate Amino Transferase (AST) 29 U/L (15-37) Alanine Aminotransferase (ALT) 23 U/L (14-59) Alkaline Phosphatase 77 U/L (46-116) Troponin I Quantitative < 0.017 ng/mL (0.000-0.055) Total Protein 8.1 g/dL (6.4-8.2) Albumin 4.2 g/dL (3.4-5.0) Albumin/Globulin Ratio 1.1 (1.0-1.7) Lipase 116 U/L (73-393) Laboratory Tests 11/19/18 14:26 Laboratory Tests 11/19/18 14:26 EKG EKG EKG obtained 11/19/18 at [address] Andrade- who compared today's EKG with EKG from 06/11/18 in pt' s records- similar tracing Sinus bradycardia Rt BBB Rate 53 No STEMI Radiology/Procedures Radiology/Procedures [PROCEDURE: CT ABD PELV W/ IV CONTRST ONLY EXAM: CT Abdomen and Pelvis with IV contrast CLINICAL HISTORY: Left lower quadrant pain COMPARISON: 06/14/2018 TECHNIQUE: Helical CT of the abdomen and pelvis was performed following the administration of intravenous contrast. Axial, coronal and sagittal reformatted images were generated. PQRS compliance statement - One or more of the following individualized dose reduction techniques were utilized for this study: 1. Automated exposure control 2. Adjustment of the mA and/or kV according to patient size 3. Use of iterative reconstruction technique FINDINGS: Lower chest: Linear opacities in the lower lobes and lingula likely scarring/atelectasis. Coronary artery calcifications are seen. No pericardial effusion. Abdomen and Pelvis: Focal hypoattenuation along the falciform ligament likely focal fatty infiltration. Accounting for postcholecystectomy state, no biliary ductal dilatation. Spleen is mildly enlarged measuring 14.3 cm in length. Adrenal glands and pancreas are unremarkable. Symmetric nephrograms. No focal renal lesion. No hydronephrosis. Bladder is unremarkable. Appendix is normal. No small or large bowel dilatation. Moderate colonic stool content. Small fat-containing periumbilical hernia. No abdominal or pelvic ascites. No abdominal or pelvic lymphadenopathy. Calcifications of aorta are seen. Aorta is grossly normal in caliber throughout the visualized segment. Bones: Degenerative changes of the spine are seen. IMPRESSION: 1. Spleen is enlarged measuring 14.3 cm in length.. 2. Moderate colonic stool content is seen. However the rectosigmoid is decompressed. 3. Focal hypoattenuation along the falx from ligament likely focal fatty infiltration. 4. No evidence of bowel obstruction. Appendix is normal. 5. No evidence for acute diverticulitis. Electronically signed by: Luis Felipe Parkinson MD (11/19/2018 3:52 PM) [facility] DICTATED and SIGNED BY: LUIS FELIPE PARKINSON MD DATE: 11/19/18 1546 Course & Med Decision Making Course & Med Decision Making Pertinent Labs and Imaging studies reviewed. (See chart for details) During initial exam patient's sister reports patient lives alone and does have history of dementia. She has concerns as patient is having issues with caring for herself. Discussed admission during initial exam so case management could meet with patient and her family to discuss possible options for living conditions and possible placement. Both patient and her sister are agreeable with admission plan along with case management discussion. 1510: Dr. Neely, hospitalist was in the ER-discussed patient's case and admit plan. Will admit to their services for further care and placed a consult for case management to discuss possible placement options. Will admit to med/surg. Test results were discussed with pt and family at bedside. WBCs NL at 9.0; EKG with no acute ST elevation/STEMI and troponin <0.017; LFTs/lipase NL. Patient's CT abdomen and pelvis with noted enlarged spleen- pt had no tenderness in lt upper quadrant and denies any recent injury/falls- no obstruction/acute diverticulitis on report with NL appendix. UA was negative for infection. Pt was given IV fluids and pain med. while in ER and has remained nontoxic in appearance with reports pain had improved following med. Dragon Disclaimer Dragon Disclaimer This electronic medical record was generated, in whole or in part, using a voice recognition dictation system. Departure Departure Impression: Primary Impression: Abdominal pain Additional Impression: FTT (failure to thrive) in adult Disposition: 09 ADMITTED INPATIENT Admitting Physician: Lamar Neely Condition: STABLE Referrals: ROZ FOX (PCP) Problem Qualifiers LIAT LEÓN APRN Nov 19, 2018 16:15
[2018-11-19] MEDS ORDERED: POTASSIUM CHLORIDE 20 MEQ TABLET.ER. PO ONE (16:30)
[2018-11-19] MEDS ORDERED: fentaNYL PF VIAL 100 MCG/2 ML VIAL IV PRN (17:15)
[2018-11-19] MEDS ORDERED: ONDANSETRON PF 4 MG/2 ML VIAL. IV PRN (17:15)
[2018-11-19] MEDS ORDERED: ACETAMINOPHEN 325 MG TABLET. PO PRN (17:15)
--- NOTE | 2018-11-19 18:55 | HP ---
ADMIT DATE: 11/19/2018 CHIEF COMPLAINT: Mental status change. HISTORY OF PRESENT ILLNESS: The patient is a pleasant 73-year-old female who sounds like she is basically failing to thrive. She has dementia. She lives alone. Her p.o. intake is down. She has been complaining of some pain. Her daughters brought her in for evaluation. I discussed the case with ER physician. We are going to admit the patient and consult social service manager for possible placement. It should be noted while she is here in the ER, she does have a slightly elevated bilirubin of 1.3, her glucose is 116 in the high. Her creatinine is slightly high at 1.1 and her potassium is little low at 3.4. We will be addressing those issues as well. Please see below. PAST MEDICAL HISTORY: Dementia, probable early failure to thrive, UTI, hyperlipidemia, probable coronary artery disease, hypertension, depression, anxiety, edema, constipation, GERD, arthritis. ALLERGIES: None. FAMILY HISTORY: Hypertension. SOCIAL HISTORY: She does not drink, smoke or take drugs. She lives by herself. MEDICATIONS: Reviewed. She is on 17 including Augmentin, donepezil, Lipitor, Imdur, metoprolol, Cardizem, Zoloft, Klor-Con, Lasix, magnesium, MiraLax, Protonix, prednisone, vitamins. REVIEW OF SYSTEMS: Unable to obtain. The patient is too confused. PHYSICAL EXAMINATION: VITAL SIGNS: Temperature 97, pulse 54, respirations 20, blood pressure 160/69, O2 sat 96%. GENERAL: She is alert and pleasant, but very confused. HEART: Normal S1, S2. LUNGS: Clear. ABDOMEN: Soft. EXTREMITIES: No edema. SKIN: No rash. ENDOCRINE: No thyromegaly. LYMPHATICS: No cervical nodes. HEMATOPOIETIC: No bruising. PSYCHIATRIC: She is confused. LABORATORY DATA: Hematology is normal. Potassium is low at 3.4. Urinalysis is negative. ASSESSMENT AND PLAN: Acute on chronic mental status change, suspect progression of her dementia, hypokalemia, mild hyperglycemia, mild acute renal failure. The patient has been admitted. We will consult social service manager for possible long-term care and the family agrees that they are considering that, but they will have one more daughter come by and have her give some input as well. For now, she will get fluids, PT, OT, DVT prophylaxis. Full code. Home meds. ARNOLD RPOER DO DR: SARAH/elisabeth JOB#: [id number] / [id number]
[2018-11-19 19:00] VITALS: BP 153/55
[2018-11-19] MEDS: IV NORMAL SALINE 1000ML BAG 1,000 ML IV SCH (20:10)
[2018-11-19] MEDS ORDERED: APIX5TAB PO (20:45)
[2018-11-19] MEDS ORDERED: QUET25TA5 PO (20:45)
[2018-11-19 22:34] VITALS: BP 138/66
[2018-11-20 03:00] VITALS: BP 129/60
[2018-11-20 05:03] LABS: BASO # 0.1 x10^3/uL (0.0-0.2); BASO % 1 % (0-3); EOS # 0.1 x10^3/uL (0.0-0.7); EOS % 1 % (0-3); HEMATOCRIT 35.9 % (36.0-47.0); HEMOGLOBIN 11.9 g/dL (12.0-15.5); LYMPH # 1.8 x10^3/uL (1.0-4.8); LYMPH % 23 % (24-48); MEAN CORPUSCULAR HEMOGLOBIN 27 pg (25-35); MEAN CORPUSCULAR HGB CONC 33 g/dL (31-37); MEAN CORPUSCULAR VOLUME 83 fL (79-100); MONO # 0.7 x10^3/uL (0.0-1.1); MONO % 9 % (0-9); NEUT # 5.2 x10^3uL (1.8-7.7); NEUT % 66 % (31-73); PLATELET COUNT 211 x10^3/uL (140-400); RED BLOOD COUNT 4.34 x10^6/uL (3.50-5.40); WHITE BLOOD COUNT 7.9 x10^3/uL (4.0-11.0)
[2018-11-20 05:40] LABS: ALBUMIN 3.5 g/dL (3.4-5.0); ALBUMIN/GLOBULIN RATIO 1.1 (1.0-1.7); CALCIUM 8.8 mg/dL (8.5-10.1); GFR 54.1; POTASSIUM 3.3 mmol/L (3.5-5.1); TOTAL PROTEIN 6.7 g/dL (6.4-8.2)
[2018-11-20] MEDS: IV NORMAL SALINE 1000ML BAG 1,000 ML IV SCH ×2 (05:50→08:22)
[2018-11-20 07:00] VITALS: BP 158/73
[2018-11-20] MEDS ORDERED: PANTOPRAZOLE 40 MG TABLET.DR. PO SCH ×2 (08:00→09:00)
[2018-11-20] MEDS ORDERED: SERTRALINE 50 MG TABLET. PO SCH (09:00)
[2018-11-20] MEDS ORDERED: NON FORMULARY ITEM (Edoxaban Tosylate (Savaysa) 60 MG) PO SCH (09:00)
[2018-11-20] MEDS ORDERED: CHOLECALCIFEROL (VITAMIN D3) 1,000 UNIT TABLET PO SCH (09:00)
[2018-11-20] MEDS ORDERED: FUROSEMIDE 40 MG TABLET. PO SCH (09:00)
[2018-11-20] MEDS ORDERED: METOPROLOL SUCC 24HR ER 25 MG TAB.ER.24H. PO SCH (09:00)
[2018-11-20] MEDS ORDERED: DONEPEZIL HCL 10 MG TABLET. PO SCH (09:00)
[2018-11-20] MEDS ORDERED: POTASSIUM CHLORIDE 20 MEQ TABLET.ER. PO SCH (09:00)
[2018-11-20] MEDS ORDERED: POLYETHYLENE GLYCOL 3350 17 GM PACKET. PO SCH (09:00)
[2018-11-20] MEDS ORDERED: APIXABAN 5 MG TABLET. PO SCH (09:00)
[2018-11-20] MEDS ORDERED: ISOSORBIDE MONONITRATE ER 30 MG TAB.ER.24H PO SCH (09:00)
--- NOTE | 2018-11-20 09:40 | PDOC2 ---
GI CONSULT Reason For Consult: Abd pain HPI: HPI: 73 y/o female admitted through ER. Other notes suggest that her sister has concerned w/ pt's ability to care for herself at home w/ dementia. Some mention of pelvic and abd pain. She is alone in her room this morning and not a good historian. Asks if she can use the nursing call button to call her family because she thought they'd be here by now. Thinks she had bilateral lower abd/pelvic pain for awhile that has improve. Can't remember when last stooled. No n/v - like pancakes for breakfast. Denies heartburn and dysphagia. Denies diarrhea and bleeding. CT noted moderate stool content. PMH: PMH: per chart - A Fib, valvuluar disease, HTN, HLD, dementia, GERD, IBS, OA, allergic rhinitis cholecystectomy, oophorectomy, cardiac cath, cervical fusion FH: Family History: Other (unable to obtain) Social History: ALCOHOL: none ROS: Per HPI. Vitals: Vitals: Vital Signs Date Time Temp Pulse Resp B/P (MAP) Pulse Ox O2 Delivery O2 Flow Rate FiO2 11/20/18 08:20 72 158/73 11/20/18 07:00 98.1 18 98 Room Air 98.1 Labs: Labs: Laboratory Tests Test 11/19/18 13:18 11/19/18 14:26 11/20/18 04:30 Urine Collection Type Unknown Urine Color Yellow Urine Clarity Clear Urine pH 7.0 Urine Specific [place] 1.015 Urine Protein Negative mg/dL (NEG-TRACE) Urine Glucose (UA) Negative mg/dL (NEG) Urine Ketones (Stick) Negative mg/dL (NEG) Urine Blood Negative (NEG) Urine Nitrite Negative (NEG) Urine Bilirubin Negative (NEG) Urine Urobilinogen Dipstick 1.0 mg/dL (0.2 mg/dL) Urine Leukocyte Esterase Negative (NEG) Urine RBC 1-2 /HPF (0-2) Urine WBC Occ /HPF (0-4) Urine Squamous Epithelial Cells Occ /LPF Urine Bacteria Few /HPF (0-FEW) Urine Hyaline Casts Few /HPF Urine Mucus Mod /LPF White Blood Count 9.0 x10^3/uL (4.0-11.0) 7.9 x10^3/uL (4.0-11.0) Red Blood Count 4.56 x10^6/uL (3.50-5.40) 4.34 x10^6/uL (3.50-5.40) Hemoglobin 12.5 g/dL (12.0-15.5) 11.9 g/dL (12.0-15.5) Hematocrit 37.6 % (36.0-47.0) 35.9 % (36.0-47.0) Mean Corpuscular Volume 82 fL (79-100) 83 fL (79-100) Mean Corpuscular Hemoglobin 27 pg (25-35) 27 pg (25-35) Mean Corpuscular Hemoglobin Concent 33 g/dL (31-37) 33 g/dL (31-37) Red Cell Distribution Width 14.8 % (11.5-14.5) 15.0 % (11.5-14.5) Platelet Count 260 x10^3/uL (140-400) 211 x10^3/uL (140-400) Neutrophils (%) (Auto) 78 % (31-73) 66 % (31-73) Lymphocytes (%) (Auto) 15 % (24-48) 23 % (24-48) Monocytes (%) (Auto) 7 % (0-9) 9 % (0-9) Eosinophils (%) (Auto) 0 % (0-3) 1 % (0-3) Basophils (%) (Auto) 1 % (0-3) 1 % (0-3) Neutrophils # (Auto) 7.0 x10^3uL (1.8-7.7) 5.2 x10^3uL (1.8-7.7) Lymphocytes # (Auto) 1.3 x10^3/uL (1.0-4.8) 1.8 x10^3/uL (1.0-4.8) Monocytes # (Auto) 0.6 x10^3/uL (0.0-1.1) 0.7 x10^3/uL (0.0-1.1) Eosinophils # (Auto) 0.0 x10^3/uL (0.0-0.7) 0.1 x10^3/uL (0.0-0.7) Basophils # (Auto) 0.1 x10^3/uL (0.0-0.2) 0.1 x10^3/uL (0.0-0.2) Sodium Level 142 mmol/L (136-145) 145 mmol/L (136-145) Potassium Level 3.4 mmol/L (3.5-5.1) 3.3 mmol/L (3.5-5.1) Chloride Level 100 mmol/L (98-107) 107 mmol/L (98-107) Carbon Dioxide Level 31 mmol/L (21-32) 27 mmol/L (21-32) Anion Gap 11 (6-14) 11 (6-14) Blood Urea Nitrogen 14 mg/dL (7-20) 12 mg/dL (7-20) Creatinine 1.1 mg/dL (0.6-1.0) 1.0 mg/dL (0.6-1.0) Estimated GFR (Cockcroft-Gault) 48.4 54.1 BUN/Creatinine Ratio 13 (6-20) 12 (6-20) Glucose Level 116 mg/dL (70-99) 105 mg/dL (70-99) Lactic Acid Level 1.2 mmol/L (0.4-2.0) Calcium Level 9.5 mg/dL (8.5-10.1) 8.8 mg/dL (8.5-10.1) Magnesium Level 2.3 mg/dL (1.8-2.4) Total Bilirubin 1.3 mg/dL (0.2-1.0) 1.0 mg/dL (0.2-1.0) Aspartate Amino Transf (AST/SGOT) 29 U/L (15-37) 24 U/L (15-37) Alanine Aminotransferase (ALT/SGPT) 23 U/L (14-59) 20 U/L (14-59) Alkaline Phosphatase 77 U/L (46-116) 61 U/L (46-116) Troponin I Quantitative < 0.017 ng/mL (0.000-0.055) Total Protein 8.1 g/dL (6.4-8.2) 6.7 g/dL (6.4-8.2) Albumin 4.2 g/dL (3.4-5.0) 3.5 g/dL (3.4-5.0) Albumin/Globulin Ratio 1.1 (1.0-1.7) 1.1 (1.0-1.7) Lipase 116 U/L (73-393) Allergies: Coded Allergies: No Known Allergies (Unverified Allergy, Unknown, 08/20/14) Medications: Current Medications Medications (Trade) Dose Ordered Sig/Gage Route PRN Reason Start Time Stop Time Status Last Admin Dose Admin Fentanyl Citrate (Fentanyl 2ml Vial) 25 mcg 1X ONCE IV 11/19/18 13:45 11/19/18 13:48 DC 11/19/18 13:45 Sodium Chloride 1,000 ml @ 1,000 mls/hr 1X ONCE IV 11/19/18 13:45 11/19/18 14:44 DC 11/19/18 13:45 Iohexol (Omnipaque 300 Mg/ml) 60 ml 1X ONCE IV 11/19/18 15:00 11/19/18 15:01 DC 11/19/18 15:00 Sodium Chloride 1,000 ml @ 75 mls/hr [id number] IV 11/19/18 16:30 11/20/18 08:22 Potassium Chloride (Klor-Con) 40 meq 1X ONCE PO 11/19/18 16:30 11/19/18 16:35 DC 11/19/18 16:30 Apixaban (Eliquis) 5 mg BID PO 11/20/18 09:00 11/20/18 08:21 Vitamin D (Vitamin D3) 2,000 unit DAILY PO 11/20/18 09:00 11/20/18 08:21 Furosemide (Lasix) 40 mg [id number] PO 11/20/18 09:00 11/20/18 08:21 Metoprolol Succinate (Toprol Xl) 25 mg DAILY PO 11/20/18 09:00 11/20/18 08:14 Potassium Chloride (Klor-Con) 20 meq DAILY PO 11/20/18 09:00 11/20/18 08:22 Diltiazem HCl (Cardizem 24hr Cd) 180 mg DAILY PO 11/20/18 09:00 11/20/18 08:20 Donepezil HCl (Aricept) 10 mg DAILY PO 11/20/18 09:00 11/20/18 08:13 Isosorbide Mononitrate (Imdur) 60 mg BID94 PO 11/20/18 09:00 11/20/18 08:20 Pantoprazole Sodium (Protonix) 40 mg BIDAC PO 11/20/18 08:00 11/20/18 08:21 Polyethylene Glycol (miraLAX PACKET) 17 gm DAILY PO 11/20/18 09:00 11/20/18 08:21 Sertraline HCl (Zoloft) 100 mg DAILY PO 11/20/18 09:00 11/20/18 08:14 Imaging: Imaging: CT A/P IMPRESSION: 1. Spleen is enlarged measuring 14.3 cm in length.. 2. Moderate colonic stool content is seen. However the rectosigmoid is decompressed. 3. Focal hypoattenuation along the falx from ligament likely focal fatty infiltration. 4. No evidence of bowel obstruction. Appendix is normal. 5. No evidence for acute diverticulitis. PE: GEN: NAD, sitting on edge of bed, breakfast tray 80% consumed HEENT: Atraumatic, PERRL LUNGS: CTAB HEART: RRR ABD: NABS, S/ND/NT EXTREMITY: No edema SKIN: No rashes, no jaundice NEURO/PSYCH: pleasant, forgetful A/P: A/P: Dementia ?abd/pelvic pain Anemia Moderate stool content on CT CRC screen - unknown -- ?improved - maybe better history from family later Agree w/ PPI and Miralax. Observe. SILVERIO BRITT Nov 20, 2018 09:40
[2018-11-20 11:00] VITALS: BP 154/76
--- NOTE | 2018-11-20 14:12 | NUR ---
[facility]ENY following for discharge planning. Discussed with RN. SW met with pt in response to referral, pt's niece at bedside. Pt lives alone, but has a lot of family support. Pt's family fills pt's weekly pill box which has an alarm to remind pt to take them, at the time alarm goes off, pt's family call her and speak with her as she is taking the medication. Niece, Godwin reported they visit pt twice a day and pt's daughter does pt's laundry so pt does not have to go down into the basement. Pt gets out and about into the yard and gets around fine at home. Pt and pt family have no concerns about pt going home. RN notified. BENY will continue to follow.
[2018-11-20 15:00] VITALS: BP 149/74
--- NOTE | 2018-11-20 16:20 | PDOC3 ---
Discharge Summary Visit Information Date of Admission: Nov 19, 2018 Date of Discharge: Nov 20, 2018 Admitting Diagnosis: acute on chornic mental status change Final Diagnosis Dementia with transient decompensation resolved Acute renal failure secondary to vasomotor etiology resolved Hypokalemia replaced Abdominal pain resolved. constipation most likely etiology of the abdominal pain Brief Hospital Course Allergies Allergies Coded Allergies Type Severity Reaction Last Updated Verified No Known Allergies Allergy Unknown 08/20/14 No Vital Signs Vital Signs Date Time Temp Pulse Resp B/P (MAP) Pulse Ox O2 Delivery O2 Flow Rate FiO2 11/20/18 15:00 98.0 74 18 149/74 (99) 99 Room Air 98.0 Lab Results Laboratory Tests Test 11/19/18 13:18 11/19/18 14:26 11/20/18 04:30 Urine Collection Type Unknown Urine Color Yellow Urine Clarity Clear Urine pH 7.0 Urine Specific [place] 1.015 Urine Protein Negative mg/dL (NEG-TRACE) Urine Glucose (UA) Negative mg/dL (NEG) Urine Ketones (Stick) Negative mg/dL (NEG) Urine Blood Negative (NEG) Urine Nitrite Negative (NEG) Urine Bilirubin Negative (NEG) Urine Urobilinogen Dipstick 1.0 mg/dL (0.2 mg/dL) Urine Leukocyte Esterase Negative (NEG) Urine RBC 1-2 /HPF (0-2) Urine WBC Occ /HPF (0-4) Urine Squamous Epithelial Cells Occ /LPF Urine Bacteria Few /HPF (0-FEW) Urine Hyaline Casts Few /HPF Urine Mucus Mod /LPF White Blood Count 9.0 x10^3/uL (4.0-11.0) 7.9 x10^3/uL (4.0-11.0) Red Blood Count 4.56 x10^6/uL (3.50-5.40) 4.34 x10^6/uL (3.50-5.40) Hemoglobin 12.5 g/dL (12.0-15.5) 11.9 g/dL (12.0-15.5) Hematocrit 37.6 % (36.0-47.0) 35.9 % (36.0-47.0) Mean Corpuscular Volume 82 fL (79-100) 83 fL (79-100) Mean Corpuscular Hemoglobin 27 pg (25-35) 27 pg (25-35) Mean Corpuscular Hemoglobin Concent 33 g/dL (31-37) 33 g/dL (31-37) Red Cell Distribution Width 14.8 % (11.5-14.5) 15.0 % (11.5-14.5) Platelet Count 260 x10^3/uL (140-400) 211 x10^3/uL (140-400) Neutrophils (%) (Auto) 78 % (31-73) 66 % (31-73) Lymphocytes (%) (Auto) 15 % (24-48) 23 % (24-48) Monocytes (%) (Auto) 7 % (0-9) 9 % (0-9) Eosinophils (%) (Auto) 0 % (0-3) 1 % (0-3) Basophils (%) (Auto) 1 % (0-3) 1 % (0-3) Neutrophils # (Auto) 7.0 x10^3uL (1.8-7.7) 5.2 x10^3uL (1.8-7.7) Lymphocytes # (Auto) 1.3 x10^3/uL (1.0-4.8) 1.8 x10^3/uL (1.0-4.8) Monocytes # (Auto) 0.6 x10^3/uL (0.0-1.1) 0.7 x10^3/uL (0.0-1.1) Eosinophils # (Auto) 0.0 x10^3/uL (0.0-0.7) 0.1 x10^3/uL (0.0-0.7) Basophils # (Auto) 0.1 x10^3/uL (0.0-0.2) 0.1 x10^3/uL (0.0-0.2) Sodium Level 142 mmol/L (136-145) 145 mmol/L (136-145) Potassium Level 3.4 mmol/L (3.5-5.1) 3.3 mmol/L (3.5-5.1) Chloride Level 100 mmol/L (98-107) 107 mmol/L (98-107) Carbon Dioxide Level 31 mmol/L (21-32) 27 mmol/L (21-32) Anion Gap 11 (6-14) 11 (6-14) Blood Urea Nitrogen 14 mg/dL (7-20) 12 mg/dL (7-20) Creatinine 1.1 mg/dL (0.6-1.0) 1.0 mg/dL (0.6-1.0) Estimated GFR (Cockcroft-Gault) 48.4 54.1 BUN/Creatinine Ratio 13 (6-20) 12 (6-20) Glucose Level 116 mg/dL (70-99) 105 mg/dL (70-99) Lactic Acid Level 1.2 mmol/L (0.4-2.0) Calcium Level 9.5 mg/dL (8.5-10.1) 8.8 mg/dL (8.5-10.1) Magnesium Level 2.3 mg/dL (1.8-2.4) Total Bilirubin 1.3 mg/dL (0.2-1.0) 1.0 mg/dL (0.2-1.0) Aspartate Amino Transf (AST/SGOT) 29 U/L (15-37) 24 U/L (15-37) Alanine Aminotransferase (ALT/SGPT) 23 U/L (14-59) 20 U/L (14-59) Alkaline Phosphatase 77 U/L (46-116) 61 U/L (46-116) Troponin I Quantitative < 0.017 ng/mL (0.000-0.055) Total Protein 8.1 g/dL (6.4-8.2) 6.7 g/dL (6.4-8.2) Albumin 4.2 g/dL (3.4-5.0) 3.5 g/dL (3.4-5.0) Albumin/Globulin Ratio 1.1 (1.0-1.7) 1.1 (1.0-1.7) Lipase 116 U/L (73-393) Iron Level 65 ug/dL (50-170) Total Iron Binding Capacity 287 ug/dL (250-450) Iron Saturation 23 % (15-34) Laboratory Tests Test 11/20/18 04:30 White Blood Count 7.9 x10^3/uL (4.0-11.0) Red Blood Count 4.34 x10^6/uL (3.50-5.40) Hemoglobin 11.9 g/dL (12.0-15.5) Hematocrit 35.9 % (36.0-47.0) Mean Corpuscular Volume 83 fL (79-100) Mean Corpuscular Hemoglobin 27 pg (25-35) Mean Corpuscular Hemoglobin Concent 33 g/dL (31-37) Red Cell Distribution Width 15.0 % (11.5-14.5) Platelet Count 211 x10^3/uL (140-400) Neutrophils (%) (Auto) 66 % (31-73) Lymphocytes (%) (Auto) 23 % (24-48) Monocytes (%) (Auto) 9 % (0-9) Eosinophils (%) (Auto) 1 % (0-3) Basophils (%) (Auto) 1 % (0-3) Neutrophils # (Auto) 5.2 x10^3uL (1.8-7.7) Lymphocytes # (Auto) 1.8 x10^3/uL (1.0-4.8) Monocytes # (Auto) 0.7 x10^3/uL (0.0-1.1) Eosinophils # (Auto) 0.1 x10^3/uL (0.0-0.7) Basophils # (Auto) 0.1 x10^3/uL (0.0-0.2) Sodium Level 145 mmol/L (136-145) Potassium Level 3.3 mmol/L (3.5-5.1) Chloride Level 107 mmol/L (98-107) Carbon Dioxide Level 27 mmol/L (21-32) Anion Gap 11 (6-14) Blood Urea Nitrogen 12 mg/dL (7-20) Creatinine 1.0 mg/dL (0.6-1.0) Estimated GFR (Cockcroft-Gault) 54.1 BUN/Creatinine Ratio 12 (6-20) Glucose Level 105 mg/dL (70-99) Calcium Level 8.8 mg/dL (8.5-10.1) Iron Level 65 ug/dL (50-170) Total Iron Binding Capacity 287 ug/dL (250-450) Iron Saturation 23 % (15-34) Total Bilirubin 1.0 mg/dL (0.2-1.0) Aspartate Amino Transf (AST/SGOT) 24 U/L (15-37) Alanine Aminotransferase (ALT/SGPT) 20 U/L (14-59) Alkaline Phosphatase 61 U/L (46-116) Total Protein 6.7 g/dL (6.4-8.2) Albumin 3.5 g/dL (3.4-5.0) Albumin/Globulin Ratio 1.1 (1.0-1.7) Brief Hospital Course he patient is a pleasant 73-year-old female who sounds like she is basically failing to thrive. She has dementia. She lives alone. Her p.o. intake is down. She has been complaining of some pain. Her daughters brought her in for evaluation. I discussed the case with ER physician. We are going to admit the patient and consult social worker clinical for possible placement. It should be noted while she is here in the ER, she does have a slightly elevated bilirubin of 1.3, her glucose is 116 in the high. Her creatinine is slightly high at 1.1 and her potassium is little low at 3.4. We will be addressing those issues as well Hospital course: Patient had a very unremarkable hospital stay. The day after her admission she was able to ambulate with no problems with a rolling walker. Patient also had a good appetite and abdominal discomfort have resolved at that point. She had a CT of the abdomen and pelvis done with the following results: PATIENT: JANET EWING ACCOUNT: [id number] : 1945 LOCATION: ER AGE: 73 SEX: F EXAM STATUS: REG ER ORD. PHYSICIAN: LIAT LEÓN APRN REASON: llq pain PROCEDURE: CT ABD PELV W/ IV CONTRST ONLY EXAM: CT Abdomen and Pelvis with IV contrast CLINICAL HISTORY: Left lower quadrant pain COMPARISON: 06/14/2018 TECHNIQUE: Helical CT of the abdomen and pelvis was performed following the administration of intravenous contrast. Axial, coronal and sagittal reformatted images were generated. PQRS compliance statement - One or more of the following individualized dose reduction techniques were utilized for this study: 1. Automated exposure control 2. Adjustment of the mA and/or kV according to patient size 3. Use of iterative reconstruction technique FINDINGS: Lower chest: Linear opacities in the lower lobes and lingula likely scarring/atelectasis. Coronary artery calcifications are seen. No pericardial effusion. Abdomen and Pelvis: Focal hypoattenuation along the falciform ligament likely focal fatty infiltration. Accounting for postcholecystectomy state, no biliary ductal dilatation. Spleen is mildly enlarged measuring 14.3 cm in length. Adrenal glands and pancreas are unremarkable. Symmetric nephrograms. No focal renal lesion. No hydronephrosis. Bladder is unremarkable. Appendix is normal. No small or large bowel dilatation. Moderate colonic stool content. Small fat-containing periumbilical hernia. No abdominal or pelvic ascites. No abdominal or pelvic lymphadenopathy. Calcifications of aorta are seen. Aorta is grossly normal in caliber throughout the visualized segment. Bones: Degenerative changes of the spine are seen. IMPRESSION: 1. Spleen is enlarged measuring 14.3 cm in length.. 2. Moderate colonic stool content is seen. However the rectosigmoid is decompressed. 3. Focal hypoattenuation along the falx from ligament likely focal fatty infiltration. 4. No evidence of bowel obstruction. Appendix is normal. 5. No evidence for acute diverticulitis. Electronically signed by: Luis Felipe Parkinson MD (11/19/2018 3:52 PM) [facility] DICTATED and SIGNED BY: LUIS FELIPE PARKINSON MD DATE: 11/19/181545 She was seen in consultation by GI and recommendation for daily MiraLAX was given. The patient at some point stopped the MiraLAX given that she had a lot of loose stools. I have encourage her to stay well hydrated and her family checks on her quite frequently. She was in good spirits to be dismissed home at no complaints in no acute events were reported overnight but nursing staff. No further inpatient services were required at this point given her clinical stability. Signs and symptoms of alarm were discussed with the family members at bedside prior to dismissal all of their concerns were addressed the best of my abilities. No changes to her medications were done Discharge Information Condition at Discharge: Improved Follow Up: Weeks (1 week with primary care) Disposition/Orders: D/C to Home Scheduled Amoxicillin/Potassium Clav (Augmentin 875-125 Tablet) 1 Each Tablet, 1 TAB PO BID, #20 Prescribed by: Zunilda Conti APRN on 06/11/18 1720 Apixaban (Eliquis) 5 Mg Tablet, 5 MG PO BID for AFIB, (Reported) Entered as Reported by: ROBERT DIAZ on 11/19/182044 Last Taken: UNKNOWN on Unknown Date & Time Last Action: Continued on 744 by DILMA Joy RAFAEL Atorvastatin Calcium (Lipitor) 40 Mg Tablet, 1 TAB PO QHS, #90 Ref 1 (Reported) Entered as Reported by: Vitaliy Barraza on 08/20/142103 Last Action: Continued on 11/20/18744 by DILMA Joy RAFAEL Cholecalciferol (Vitamin D3) (Vitamin D3) 1,000 Unit Tablet, 2 TAB PO DAILY, # 30 Ref 5 (Reported) Entered as Reported by: Vitaliy Barraza on 08/20/142103 Last Action: Continued on 11/20/18744 by DILMA Joy RAFAEL Diltiazem Hcl (Cardizem Cd) 180 Mg Cap.er.24h, 1 CAP PO DAILY, #90 Ref 1 ( Reported) Entered as Reported by: Vitaliy Barraza on 08/20/142103 Last Action: Converted on 11/20/18744 by DILMA HALL Donepezil Hcl (Donepezil Hcl) 10 Mg Tablet, 1 TAB PO DAILY, #90 Ref 1 (Reported) Entered as Reported by: KATELYN BACA on 10/05/17816 Last Action: Converted on 11/20/18744 by DILMA RAFAEL Edoxaban Tosylate (Savaysa) 60 Mg Tablet, 60 MG PO DAILY, (Reported) Entered as Reported by: KATELYN BACA on 10/05/17816 Last Action: Converted on 11/20/18744 by DILMA HALL Furosemide (Lasix) 40 Mg Tablet, 1 TAB PO BID, #90 Ref 1 (Reported) Entered as Reported by: Vitaliy Barraza on 08/20/142103 Last Action: Continued on 11/20/18744 by DILMA RAFAEL Isosorbide Mononitrate (Imdur) 60 Mg Tab.er.24h, 1 TAB PO BID, #30 Ref 5 ( Reported) Entered as Reported by: Vitaliy Barraza on 08/20/142103 Last Action: Converted on 11/20/18744 by DILMA RAFAEL Lansoprazole (Lansoprazole) 30 Mg Capsule.dr, 1 CAP PO BID, #30 Ref 5 (Reported) Entered as Reported by: Vitaliy Barraza on 08/20/142103 Last Action: Converted on 11/20/18744 by DILMA HALL Magnesium Citrate (Magnesium Citrate) 296 Ml Solution, 296 ML PO ONCE, #296 Prescribed by: Zunilda Conti APRN on 06/11/18 1720 Metoprolol Succinate (Metoprolol Succinate ( Xl )) 25 Mg Tab.er.24h, 1 TAB PO DAILY, #30 Ref 5 (Reported) Entered as Reported by: KATELYN BACA on 10/05/17816 Last Action: Continued on 11/20/18744 by DILMA HALL Na Phos,M-B/Na Phos,Di-Ba (Enema) 133 Ml Enema, 133 ML RC ONCE, #1 Prescribed by: Zunilda Conti APRN on 06/11/18 1720 Pantoprazole Sodium (Pantoprazole Sodium) 40 Mg Tablet.dr, 1 TAB PO DAILY, #30 Ref 3 (Reported) Entered as Reported by: KATELYN BACA on 10/05/17816 Last Action: Continued on 11/20/18744 by DILMA HALL Polyethylene Glycol 3350 (Miralax) 17 Gm Powd.pack, 1 PACKET PO DAILY, #30 Ref 3 Prescribed by: Zunilda Conti APRN on 06/11/18 172 Last Action: Converted on 11/20/18744 by DILMA HALL Potassium Chloride (Klor-Con M20) 20 Meq Tab.er.prt, 1 TAB PO DAILY, #90 Ref 1 ( Reported) Entered as Reported by: Vitaliy Barraza on 08/20/142103 Last Action: Continued on 11/20/18744 by DILMA HALL Prednisone (Prednisone) 50 Mg Tablet, 1 TAB PO DAILY, #5 Prescribed by: TIA KEE on 05/18/17 0330 Quetiapine Fumarate (Seroquel) 25 Mg Tablet, 1 TAB PO QHS for DEMENTIA, #30 Ref 2 (Reported) Entered as Reported by: ROBERT DIAZ on 11/19/182044 Last Taken: UNKNOWN on Unknown Date & Time Last Action: Converted on 744 by DILMA HALL Sertraline Hcl (Zoloft) 100 Mg Tablet, 100 MG PO DAILY for ANTI-DEPRESSANT, Ref 0 (Reported) Entered as Reported by: KATELYN BACA on 10/05/17816 Last Action: Converted on 11/20/18 0745 by DEANA QUINTANA MD Nov 20, 2018 16:20
[2018-11-20] MEDS ORDERED: POTASSIUM CHLORIDE 20 MEQ TABLET.ER. PO ONE (16:45)
--- NOTE | 2018-11-20 16:48 | NUR ---
pt discharged home with family. meds and follow up reviewed w/ family as pt is unable to comprehend. stable upon d/c.
[2018-11-20] MEDS ORDERED: QUEtiapine 25 MG TABLET. PO SCH (21:00)
[2018-11-20] MEDS ORDERED: ATORVASTATIN CALCIUM 40 MG TABLET. PO SCH (21:00)
== END 2018-11-20 16:30 | disposition home or self-care (01) | DRG 682 ==
LOC: ER 12:32 → 5 NORTH 15:30 → 5 SOUTH 17:08
PROVIDERS: ADMIT Internal Medicine; ATTEND Internal Medicine
DX: N17.0 Acute kidney failure with tubular necrosis (principal); G93.41 Metabolic encephalopathy; F03.90 Unspecified dementia, unspecified severity, without behavioral disturbance, psychotic disturbance, mood disturbance, and anxiety; R62.7 Adult failure to thrive; E78.5 Hyperlipidemia, unspecified; E87.6 Hypokalemia; I11.0 Hypertensive heart disease with heart failure; I50.9 Heart failure, unspecified; F32.9 Major depressive disorder, single episode, unspecified; F41.9 Anxiety disorder, unspecified; K59.09 Other constipation; M19.90 Unspecified osteoarthritis, unspecified site; E78.00 Pure hypercholesterolemia, unspecified; I25.10 Atherosclerotic heart disease of native coronary artery without angina pectoris; I48.91 Unspecified atrial fibrillation; K21.9 Gastro-esophageal reflux disease without esophagitis; Z82.49 Family history of ischemic heart disease and other diseases of the circulatory system; Z87.440 Personal history of urinary (tract) infections; Z90.49 Acquired absence of other specified parts of digestive tract
CPT/HCPCS: 36415; 74177; 80053; 81001; 83540; 83550; 83605; 83690; 83735; 84484; 85025; 93005; 96361; 96374; J3010; J7030; Q9967; 99285-25